=== PATIENT | female | born 1935 ===

== ENCOUNTER 2020-01-30 09:49 | Outpatient (CLI) | payer OTHER | END 2020-01-30 09:50 | disposition home or self-care (01) | LOC: RX STUDY 09:49 | DX: K57.20 Diverticulitis of large intestine with perforation and abscess without bleeding (principal) ==

== ENCOUNTER 2020-03-03 13:30 | Inpatient (IN) | payer OTHER ==
[~2020-03-03] VITALS: Ht 149.9 cm; Wt 65.8 kg
== END 2020-03-20 10:40 | disposition home or self-care (01) | DRG 330 ==
LOC: O/R 03-09 07:00 → SURH 03-09 08:54 → O/R 03-09 13:30 → SURH 03-09 18:33
PROVIDERS: ADMIT Colon & Rectal Surgery; ATTEND Colon & Rectal Surgery
PROC: 0DQE0ZZ Repair Large Intestine, Open Approach (ICD-10-PCS; principal; 2020-03-09)
PROC: 0DJD4ZZ Inspection of Lower Intestinal Tract, Percutaneous Endoscopic Approach (ICD-10-PCS; 2020-03-09)
PROC: 0WQF0ZZ Repair Abdominal Wall, Open Approach (ICD-10-PCS; 2020-03-09)
PROC: 0DNL0ZZ Release Transverse Colon, Open Approach (ICD-10-PCS; 2020-03-09)
PROC: 0KUK0KZ Supplement Right Abdomen Muscle with Nonautologous Tissue Substitute, Open Approach (ICD-10-PCS; 2020-03-09)
PROC: 0KUL0KZ Supplement Left Abdomen Muscle with Nonautologous Tissue Substitute, Open Approach (ICD-10-PCS; 2020-03-09)
PROC: 4A12X4Z Monitoring of Cardiac Electrical Activity, External Approach (ICD-10-PCS; 2020-03-10)
PROC: BW21ZZZ Computerized Tomography (CT Scan) of Abdomen and Pelvis (ICD-10-PCS; 2020-03-18)
DX: Z43.3 Encounter for attention to colostomy (principal); K57.20 Diverticulitis of large intestine with perforation and abscess without bleeding; J95.89 Other postprocedural complications and disorders of respiratory system, not elsewhere classified; J98.11 Atelectasis; K43.2 Incisional hernia without obstruction or gangrene; I97.3 Postprocedural hypertension

== ENCOUNTER 2021-04-29 07:15 | Day surgery (SDC) | payer OTHER ==
[~2021-04-29 07:15] MED LIST: GABAPENTIN300 MG PO; GRALISE600 MG PO; HYOSCYAMINE0.125 M1 SL; LEVO-T150 MCG PO; OMEPRAZOLE MAGN20 MG PO; PAIN RELIEVER500 MG PO; PANADOL PO; SYNTHROID125 MCG PO; VERELAN240 MG PO
== END 2021-04-29 13:55 | disposition home or self-care (01) ==
LOC: AMB-ENDOS 07:15
PROVIDERS: ATTEND Colon & Rectal Surgery
DX: D12.2 Benign neoplasm of ascending colon (principal); K64.0 First degree hemorrhoids; Z20.822 Contact with and (suspected) exposure to COVID-19